=== PATIENT | female | born 1945 | race African-American/Black ===

== ENCOUNTER 2018-03-03 14:29 | Inpatient (IN) | payer SELFPAY ==
[~2018-03-03] VITALS: Ht 165.1 cm; Wt 54.4 kg
[2018-03-03] MEDS ORDERED: ONDANSETRON HCL 4MG/2ML INJ IV STA ×2 (15:26→18:13)
[2018-03-03] MEDS ORDERED: MORPHINE SULFATE 4 MG/ML CPJ (NOT FOR IM USE) IV STA ×2 (15:26→18:13)
[2018-03-03] MEDS ORDERED: MORPHINE SULFATE 10 MG/ML CPJ IV NR (15:42)
[2018-03-03 16:04] LABS: BASOPHILS % 0.6 % (0.0-2.0); EOSINOPHILS % 0.1 % (0.0-5.0); HEMATOCRIT. 40.9 % (36.0-48.0); HEMOGLOBIN. 13.4 g/dL (12.0-16.0); LYMPHOCYTES % 21.9 % (20.0-50.0); MEAN CORPUSCULAR HEMOGLOBIN 28.6 pg (28.0-32.0); MEAN CORPUSCULAR VOLUME 87.2 fL (81.0-99.0); MEAN PLATELET VOLUME 11.6 fl (7.4-10.4); MONOCYTES % 8.4 % (2.0-8.0); PLATELET 113 x1000/uL (130-400); RED BLOOD CELL COUNT 4.69 mill/uL (4.2-5.4); RED CELL DISTRIBUTION WIDTH 15.5 % (11.6-14.6)
[2018-03-03 16:10] LABS: CHLORIDE 103 mEq/L (98-107)
[2018-03-03 16:13] LABS: PROTHROMBIN TIME 10.5 sec (9.1-11.1)
[2018-03-03] MEDS ORDERED: ACETAMINOPHEN 500MG TABLET PO ONE (16:15)
[2018-03-03] MEDS ORDERED: POTASSIUM CHLORIDE 20MEQ TABLET SR PO ONE (17:45)
[2018-03-03] MEDS ORDERED: HYDRALAZINE 20MG/ML VIAL IV ONE (18:45)
[2018-03-03 20:22] LABS: CLARITY URINE CLEAR (CLEAR); COLOR URINE YELLOW (YELLOW); KETONES URINE 1+ (NEGATIVE); LEUKOCYTE ESTERASE URINE TRACE (NEGATIVE); NITRITE URINE NEGATIVE (NEGATIVE); OCCULT BLOOD URINE NEGATIVE (NEGATIVE); PH URINE 7.5 (4.5-8.0); PROTEIN URINE NEGATIVE (NEGATIVE); SPECIFIC GRAVITY URINE 1.012 (1.005-1.030)
[2018-03-03] MEDS ORDERED: ACETAMINOPHEN 325MG TABLET PO PRN (21:00)
[2018-03-03] MEDS ORDERED: MAGNESIUM/ALUMINUM HYDROXIDE/SIMETHICONE 30ML UDC PO PRN (21:00)
[2018-03-03] MEDS ORDERED: ONDANSETRON HCL 4MG/2ML INJ IV PRN (21:00)
[2018-03-03] MEDS ORDERED: LORAZEPAM 2MG/ML CPJ IV PRN (21:00)
[2018-03-03 21:50] VITALS: BP 193/83
[2018-03-03] MEDS: ENOXAPARIN 40MG/0.4ML SYR SUBCUT SCH (22:00)
[2018-03-03] MEDS: HYDROMORPHONE HCL/PF 2MG/ML CPJ IV PRN (22:17)
[2018-03-03 22:35] VITALS: BP 193/83
[2018-03-03] MEDS: AMLODIPINE 10MG TABLET PO SCH (22:53)
[2018-03-03] MEDS: CLONIDINE 0.1MG TABLET PO PRN (22:53)
[2018-03-03] MEDS ORDERED: DEXT 5%/0.45% NACL KCL 10MEQ/L 1,000 ML IV SCH (23:00)
[2018-03-04] VITALS: BP 155/70
[2018-03-04 04:00] VITALS: BP 138/65
[2018-03-04 07:05] LABS: BASOPHILS % 0.2 % (0.0-2.0); HEMATOCRIT. 37.8 % (36.0-48.0); HEMOGLOBIN. 12.6 g/dL (12.0-16.0); LYMPHOCYTES % 12.2 % (20.0-50.0); MEAN CORPUSCULAR HEMOGLOBIN 28.7 pg (28.0-32.0); MEAN CORPUSCULAR VOLUME 86.1 fL (81.0-99.0); MEAN PLATELET VOLUME 11.4 fl (7.4-10.4); NEUTROPHILS % 80.6 % (40.0-76.0); PLATELET 113 x1000/uL (130-400); RED BLOOD CELL COUNT 4.39 mill/uL (4.2-5.4); RED CELL DISTRIBUTION WIDTH 15.1 % (11.6-14.6)
[2018-03-04 07:42] LABS: CHLORIDE 104 mEq/L (98-107)
[2018-03-04 07:50] VITALS: BP 150/75
[2018-03-04] MEDS: AMLODIPINE 10MG TABLET PO SCH (08:03)
[2018-03-04] MEDS: HYDROCODONE/ACETAMINOPHEN 5/325MG TABLET PO PRN ×2 (08:03→20:33)
[2018-03-04] MEDS: ENOXAPARIN 40MG/0.4ML SYR SUBCUT SCH (08:14)
[2018-03-04 11:00] VITALS: BP 150/75
[2018-03-04 16:00] VITALS: BP 149/62
[2018-03-04 20:00] VITALS: BP 149/71
[2018-03-05] VITALS: BP 134/67
[2018-03-05] MEDS: CLONIDINE 0.1MG TABLET PO PRN (03:13)
[2018-03-05] MEDS: HYDROMORPHONE HCL/PF 2MG/ML CPJ IV PRN (03:14)
[2018-03-05 04:00] VITALS: BP 165/79
[2018-03-05 07:59] VITALS: BP 160/67
[2018-03-05] MEDS: AMLODIPINE 10MG TABLET PO SCH (08:59)
[2018-03-05] MEDS: ENOXAPARIN 40MG/0.4ML SYR SUBCUT SCH (08:59)
[2018-03-05 12:52] VITALS: BP 143/73
[2018-03-05 16:00] VITALS: BP 135/70
[2018-03-05 20:00] VITALS: BP 118/70
[2018-03-05] MEDS: HYDROCODONE/ACETAMINOPHEN 5/325MG TABLET PO PRN (23:32)
[2018-03-06] VITALS (7 sets, daily range): BP systolic 142–169; BP diastolic 68–80
[2018-03-06] MEDS: HYDROCODONE/ACETAMINOPHEN 5/325MG TABLET PO PRN ×2 (08:16→20:58)
[2018-03-06] MEDS: ENOXAPARIN 40MG/0.4ML SYR SUBCUT SCH (08:16)
[2018-03-06] MEDS: AMLODIPINE 10MG TABLET PO SCH (08:17)
[2018-03-07] VITALS: BP 152/73
[2018-03-07] MEDS: HYDROCODONE/ACETAMINOPHEN 5/325MG TABLET PO PRN ×2 (03:09→10:13)
[2018-03-07 04:00] VITALS: BP 165/77
[2018-03-07 08:00] VITALS: BP 147/68
[2018-03-07] MEDS: ENOXAPARIN 40MG/0.4ML SYR SUBCUT SCH (09:00)
[2018-03-07] MEDS: AMLODIPINE 10MG TABLET PO SCH (10:09)
[2018-03-07 12:00] VITALS: BP 144/62
== END 2018-03-07 14:57 | disposition home or self-care (01) | DRG 340 ==
LOC: ER 14:29 → EDBEDREQ 18:16 → ENRESERV 20:17 → SUPCPDRO 20:54 → 8WST 22:00
PROVIDERS: ADMIT Hospitalist; ATTEND Hospitalist
DX: S72.002A Fracture of unspecified part of neck of left femur, initial encounter for closed fracture (principal); E87.6 Hypokalemia; W18.09XA Striking against other object with subsequent fall, initial encounter; Y92.480 Sidewalk as the place of occurrence of the external cause; Y93.01 Activity, walking, marching and hiking; Y99.8 Other external cause status; Z79.899 Other long term (current) drug therapy
CPT/HCPCS: 36415; 71045; 73502; 93005; 93970; 96374; 97163; 99285; C1893; J0360; J1170; J1650; J2405